=== PATIENT | female | born 1995 | race Two or more races ===

== ENCOUNTER → 2018-11-09 | Outpatient (CLI) | payer BC, OTHER ==
[2018-11-09 11:48] LABS: BASOPHILS % 0.9 % (0.0-2.0); HEMATOCRIT. 39.5 % (36.0-48.0); HEMOGLOBIN. 12.8 g/dL (12.0-16.0); LYMPHOCYTES % 31.3 % (20.0-50.0); MEAN CORPUSCULAR HEMOGLOBIN 26.2 pg (28.0-32.0); MEAN CORPUSCULAR VOLUME 80.5 fL (81.0-99.0); MEAN PLATELET VOLUME 8.9 fl (7.4-10.4); NEUTROPHILS % 57.8 % (40.0-76.0); PLATELET 261 x1000/uL (130-400); RED CELL DISTRIBUTION WIDTH 16.6 % (11.6-14.6)
[2018-11-09 11:53] LABS: CHLORIDE 107 mEq/L (98-107)
[2018-11-09 12:03] LABS: LDL CHOLESTEROL 75 mg/dL (5-100)
[2018-11-09 12:05] LABS: HDL CHOLESTEROL 45 mg/dL (40-59); TOTAL IRON BINDING CAPACITY 466 ug/dL (250-450)
[2018-11-09 12:07] LABS: T4 FREE 0.88 ng/dL (0.76-1.46)
== END | disposition home or self-care (01) ==
LOC: LAB 11:12
PROVIDERS: ATTEND Specialist
DX: E11.8 Type 2 diabetes mellitus with unspecified complications (principal); B97.89 Other viral agents as the cause of diseases classified elsewhere
CPT/HCPCS: 36415; 80061; 82306; 82607; 82728; 82746; 83036; 83540; 83550; 84439; 84443; 84481